=== PATIENT | male | born 1995 | race Caucasian/White ===

== ENCOUNTER 2017-12-17 11:56 | Emergency (ER) | payer OTHER ==
[2017-12-17] MEDS ORDERED: METOCLOPRAMIDE 10 MG/2 ML VIAL IVP ONE (12:25)
[2017-12-17] MEDS ORDERED: NS 1,000 ML IV ONE ×2 (12:25)
--- NOTE | 2017-12-17 12:27 | EDPHY ---
H & P Stated Complaint: nausea and vomiting for 2 days Time Seen by Provider: 12/17/17 12:23 HPI/ROS: CHIEF COMPLAINT: Nausea vomiting HISTORY OF PRESENT ILLNESS: Patient is a 22-year-old man who states that he has been vomiting for the last 2 days. No fever. No pain. No diarrhea. He states that he is very dehydrated and cannot keep any fluids down. He presented to the urgent care game oral Zofran but he states that this made him more nauseous. He was referred to the ER for IV fluids. REVIEW OF SYSTEMS: Constitutional: denies: chills, fever, recent illness, recent injury EENTM: denies: blurred vision, double vision, nose congestion Respiratory: denies: cough, shortness of breath Cardiac: denies: chest pain, irregular heart rate, lightheadedness, palpitations Gastrointestinal/Abdominal: See HPI Genitourinary: denies: dysuria, frequency, hematuria, pain Musculoskeletal: denies: joint pain, muscle pain Skin: denies: lesions, rash, jaundice, bruising Neurological: denies: headache, numbness, paresthesia, tingling, dizziness, weakness Hematologic/Lymphatic: denies: blood clots, easy bleeding, easy bruising Immunologic/allergic: denies: HIV/AIDS, transplant EXAM: GENERAL: Well-appearing, well-nourished and in no acute distress. HEAD: Atraumatic, normocephalic. EYES: Pupils equal round and reactive to light, extraocular movements intact, sclera anicteric, conjunctiva are normal. ENT: TMs normal, nares patent, oropharynx clear without exudates. Slightly dry mucous membranes. NECK: Normal range of motion, supple without lymphadenopathy or JVD. LUNGS: Breath sounds clear to auscultation bilaterally and equal. No wheezes rales or rhonchi. HEART: Regular rate and rhythm without murmurs, rubs or gallops. ABDOMEN: Soft, nontender, normoactive bowel sounds. No guarding, no rebound. No masses appreciated. BACK: No CVA tenderness, no spinal tenderness, step-offs or deformities EXTREMITIES: Normal range of motion, no pitting or edema. No clubbing or cyanosis. NEUROLOGICAL: Cranial nerves II through XII grossly intact. Normal speech, normal gait. 5/5 strength, normal movement in all extremities, normal sensation PSYCH: Normal mood, normal affect. SKIN: Warm, dry, normal turgor, no visible rashes or lesions. Source: Patient Exam Limitations: No limitations - Personal History Current Tetanus Diphtheria and Acellular Pertussis (TDAP): Yes Tetanus Vaccine Date: within 10 years - Medical/Surgical History Hx Asthma: No Hx Chronic Respiratory Disease: No Hx Diabetes: No Hx Cardiac Disease: No Hx Renal Disease: No Hx Cirrhosis: No Hx Alcoholism: No Hx HIV/AIDS: No Hx Splenectomy or Spleen Trauma: No Other PMH: none. - Family History Significant Family History: No pertinent family hx - Social History Smoking Status: Never smoked Alcohol Use: None Constitutional: Initial Vital Signs Temperature (C) 36.7 C 12/17/17 11:58 Heart Rate 70 12/17/17 11:58 Respiratory Rate 16 12/17/17 11:58 Blood Pressure 144/80 H 12/17/17 11:58 O2 Sat (%) 98 12/17/17 11:58 O2 Delivery Mode Room Air Allergies/Adverse Reactions: Penicillins Allergy (Verified 12/17/17 12:03) Home Medications: Medication Instructions Recorded Metoclopramide [Reglan 10 mg tab 10 mg PO BID PRN 7 Days tab 12/17/17 (RX)] Medical Decision Making - Diagnostics Imaging Results: Imaging Impressions Abdomen CT 12/17/17 13:05 Impression: 1. Mild groundglass attenuation in the left lower lobe, query mild infiltrate versus subsegmental atelectasis. Does the patient have a cough? 2. Normal CT appearance of the appendix. 3. Mild right lower quadrant mesenteric adenitis. 4. There is no evidence of a mechanical bowel obstruction. Findings were discussed with RENE CASTILLO MD at 14:05, on 12/17/2017. Imaging: Discussed imaging studies w/ call center operations manager Radiologist ED Course/Re-evaluation: 1:00 p.m. I discussed lab work with the patient and re-evaluated his abdomen. He has some wincing in his face when I push in his right lower quadrant. I will obtain a CT scan to evaluate further. 2:05 p.m. the patient is feeling much better. We discussed the CT results. Abdominal exam is benign. He has been rehydrated. He is eager to go home. I will treat with Reglan. Differential Diagnosis: Partial list of the Differential diagnosis considered include but were not limited to; gastritis, food poisoning and although unlikely based on the history and physical exam, I also considered peptic ulcer disease, appendicitis , obstruction, ischemia, volvulus. I discussed these differential diagnoses and the plan with the patient as well as the usual and expected course. The patient understands that the diagnosis is provisional and that in medicine we are not always correct and that further workup is often warranted. Usual and customary warnings were given. All of the patient's questions were answered. The patient was instructed to return to the emergency department should the symptoms at all worsen or return, otherwise to followup with the physician as we discussed. - Data Points Laboratory Results: Laboratory Results 12/17/17 12:30 12/17/17 12:30 12/17/17 12/17/17 12:30 12:30 WBC 18.71 10^3/uL H 10^3/uL (3.80-9.50) RBC 5.97 10^6/uL 10^6/uL (4.40-6.38) Hgb 17.4 g/dL g/dL (13.7-17.5) Hct 48.1 % % (40.0-51.0) MCV 80.6 fL L fL (81.5-99.8) MCH 29.1 pg pg (27.9-34.1) MCHC 36.2 g/dL g/dL (32.4-36.7) RDW 12.9 % % (11.5-15.2) Plt Count 348 10^3/uL 10^3/uL (150-400) MPV 9.6 fL fL (8.7-11.7) Neut % (Auto) 84.3 % H % (39.3-74.2) Lymph % (Auto) 6.7 % L % (15.0-45.0) [place] % (Auto) 8.3 % % (4.5-13.0) Eos % (Auto) 0.0 % L % (0.6-7.6) Baso % (Auto) 0.2 % L % (0.3-1.7) Nucleat RBC Rel Count 0.0 % % (0.0-0.2) Absolute Neuts (auto) 15.77 10^3/uL H 10^3/uL (1.70-6.50) Absolute Lymphs (auto) 1.25 10^3/uL 10^3/uL (1.00-3.00) Absolute Monos (auto) 1.55 10^3/uL H 10^3/uL (0.30-0.80) Absolute Eos (auto) 0.00 10^3/uL L 10^3/uL (0.03-0.40) Absolute Basos (auto) 0.04 10^3/uL 10^3/uL (0.02-0.10) Absolute Nucleated RBC 0.00 10^3/uL 10^3/uL (0-0.01) Immature Gran % 0.5 % % (0.0-1.1) Immature Gran # 0.09 10^3/uL 10^3/uL (0.00-0.10) RBC/WBC/PLT Morphology TNP Platelet Estimate TNP Sodium 142 mEq/L mEq/L (135-145) Potassium 3.8 mEq/L mEq/L (3.5-5.2) Chloride 99 mEq/L mEq/L (97-110) Carbon Dioxide 21 mEq/l L mEq/l (22-31) Anion Gap 22 mEq/L H mEq/L (8-16) BUN 19 mg/dL mg/dL (7-23) Creatinine 1.0 mg/dL mg/dL (0.7-1.3) Estimated GFR > 60 Glucose 104 mg/dL H mg/dL (70-100) Calcium 10.4 mg/dL mg/dL (8.5-10.4) Total Bilirubin 1.3 mg/dL mg/dL (0.1-1.4) Conjugated Bilirubin 0.5 mg/dL mg/dL (0.0-0.5) Unconjugated Bilirubin 0.8 mg/dL mg/dL (0.0-1.1) AST 21 IU/L IU/L (17-59) ALT 34 IU/L IU/L (21-72) Alkaline Phosphatase 66 IU/L IU/L (38-126) Total Protein 9.1 g/dL H g/dL (6.3-8.2) Albumin 5.2 g/dL H g/dL (3.5-5.0) Lipase 113 IU/L IU/L (23-300) Medications Given: Discontinued Medications Sodium Chloride (Ns) 1,000 mls @ 0 mls/hr IV EDNOW ONE; Wide Open PRN Reason: Protocol Stop: 12/17/17 12:26 Last Admin: 12/17/17 12:44 Dose: 1,000 mls Sodium Chloride (Ns) 1,000 mls @ 0 mls/hr IV EDNOW ONE; Wide Open PRN Reason: Protocol Stop: 12/17/17 12:26 Last Admin: 12/17/17 12:46 Dose: 1,000 mls Metoclopramide HCl (Reglan Injection) 10 mg IVP EDNOW ONE Stop: 12/17/17 12:26 Last Admin: 12/17/17 12:44 Dose: 10 mg Departure - Departure Disposition: Home, Routine, Self-Care Clinical Impression: Dehydration Vomiting Qualifiers: Vomiting type: unspecified Vomiting Intractability: non-intractable Nausea presence: with nausea Qualified Code(s): R11.2 - Nausea with vomiting, unspecified Condition: Fair Instructions: Dehydration (ED), Acute Nausea and Vomiting (ED) Referrals: NONE *PRIMARY CARE P,. [Primary Care Provider] - As per Instructions Prescriptions: Metoclopramide [Reglan 10 mg tab (RX)] 10 mg PO BID PRN 7 Days tab PRN Reason: *Nausea & Vomiting
[2017-12-17 12:42] LABS: PLATELET COUNT 348 10^3/uL (150-400)
[2017-12-17] MEDS ORDERED: IOPAMIDOL (ISOVUE-300) 100 ML BTL ONE (13:34)
[2017-12-17 14:21] VITALS: BP 128/59
== END 2017-12-17 14:19 | disposition home or self-care (01) ==
DX: R11.2 Nausea with vomiting, unspecified (principal); E86.0 Dehydration
CPT/HCPCS: 96374; J2765; Q9967

== ENCOUNTER 2017-12-18 04:01 | Emergency (ER) | payer OTHER ==
[2017-12-18] MEDS ORDERED: ONDANSETRON DISINTEGRATING 4 MG TAB PO ONE (04:10)
[2017-12-18] MEDS ORDERED: NS 1,000 ML IV ONE (04:23)
[2017-12-18] MEDS ORDERED: HALOPERIDOL LACT 5 MG/ML INJ IVP ONE (04:24)
--- NOTE | 2017-12-18 04:42 | EDPHY ---
H & P Stated Complaint: N/V - D/C'd earlier today. Time Seen by Provider: 12/18/17 04:19 HPI/ROS: Chief Complaint: Nausea, vomiting, abdominal pain HPI: 22-year-old male is presenting for the 2nd time in 24 hr for of nausea vomiting abdominal pain. He was seen yesterday afternoon and had a CT scan of the abdomen which showed perhaps a mild mesenteric adenitis, otherwise was negative. He was improved on discharge and went home with the bed. He states he did not get his antiemetic medication as prescribed. Tonight he has had persistent nausea and vomiting. No coffee grounds or blood. Has not had any diarrhea. Does not have a history of similar episodes in the past. No fevers or chills. He states he has been unable to keep down any fluids. ROS: 10 point Review of Systems is negative except as noted in the HPI. PMH: Denies Social History: No smoking, no alcohol, he smokes marijuana daily for over 2 years Family History: non-contributory Physical Exam: Gen: Awake, Alert, No Distress HEENT: Nose: no rhinorrhea Eyes: PERRLA, EOMI Mouth: Moist mucosa Neck: Supple, no JVD Chest: nontender, lungs clear to auscultation Heart: S1, S2 normal, no murmur Abd: Soft, non-tender, no guarding Back: no CVA tenderness, no midline tenderness Ext: no edema, non-tender Skin: no rash Neuro: CN II-XII intact, Sensation grossly intact, Strength 5/5 in bilateral upper and lower extremities - Personal History Current Tetanus/Diphtheria Vaccine: Yes Current Tetanus Diphtheria and Acellular Pertussis (TDAP): Yes Tetanus Vaccine Date: within 10 years - Medical/Surgical History Hx Asthma: No Hx Chronic Respiratory Disease: No Hx Diabetes: No Hx Cardiac Disease: No Hx Renal Disease: No Hx Cirrhosis: No Hx Alcoholism: No Hx HIV/AIDS: No Hx Splenectomy or Spleen Trauma: No Other PMH: none. - Social History Smoking Status: Never smoked Constitutional: Initial Vital Signs Temperature (C) 37.5 C 12/18/17 04:03 Heart Rate 69 12/18/17 04:03 Respiratory Rate 17 12/18/17 04:03 Blood Pressure 134/67 H 12/18/17 04:03 O2 Sat (%) 97 12/18/17 04:03 O2 Delivery Mode Room Air Allergies/Adverse Reactions: Penicillins Allergy (Verified 12/17/17 12:03) Home Medications: Medication Instructions Recorded Metoclopramide [Reglan 10 mg tab 10 mg PO BID PRN 7 Days tab 12/17/17 (RX)] Medical Decision Making ED Course/Re-evaluation: I have reviewed the patient's chart. CT scan earlier which showed perhaps some mild adenitis for otherwise unremarkable. Patient's pain is primarily epigastric. I have given a L of fluid and 2.5 mg of Haldol IV. He is feeling significantly better. He is tolerating p. O.. Abdomen on repeat examination is soft and benign. I think his symptoms are most likely secondary to cannabinoid hyperemesis. I have counseled him to discontinue cannabis to see if this improves his symptoms. He will follow up at [facility], return for any concerns. - Data Points Medications Given: Discontinued Medications Haloperidol Lactate (Haldol Injection) 2.5 mg IVP EDNOW ONE Stop: 12/18/17 04:25 Last Admin: 12/18/17 04:32 Dose: 2.5 mg Sodium Chloride (Ns) 1,000 mls @ 0 mls/hr IV ONCE ONE; Wide Open PRN Reason: Protocol Stop: 12/18/17 04:24 Last Admin: 12/18/17 04:32 Dose: 1,000 mls Ondansetron HCl (Zofran Odt) 4 mg PO EDNOW ONE Stop: 12/18/17 04:11 Last Admin: 12/18/17 04:33 Dose: Not Given Departure - Departure Disposition: Home, Routine, Self-Care Clinical Impression: Abdominal pain, Nausea & vomiting Condition: Good Instructions: Abdominal Pain (ED), Acute Nausea and Vomiting (ED), Ondansetron (By mouth) Additional Instructions: You may take Zofran, 1 tablet every 6 hr as needed for nausea vomiting. Get your Reglan prescription filled today. Follow up with [facility] in 2-3 days for further evaluation. Return to the emergency department for worsening abdominal pain, uncontrolled nausea vomiting, fevers, chills, or any other concerns. Referrals: [facility] ,. [Clinic] - As per Instructions
[2017-12-18] MEDS ORDERED: ONDANSETRON 4MG PREPACK#2 BTL TAKEHOME ONE (05:22)
[2017-12-18 05:30] VITALS: BP 116/63
== END 2017-12-18 05:29 | disposition home or self-care (01) ==
DX: R11.2 Nausea with vomiting, unspecified (principal); R10.9 Unspecified abdominal pain; E86.9 Volume depletion, unspecified
CPT/HCPCS: 96374; J1630